=== PATIENT | male | born 1985 | race Hispanic/Latino ===

== ENCOUNTER 2016-10-19 13:39 | Emergency (ER) | payer MEDICAID ==
[2016-10-19 14:18] VITALS: RESP 20
--- NOTE | 2016-10-19 14:47 | ED PDOC ---
Arrival/HPI - General Chief Complaint: ENT Problem Time Seen by Provider: 10/19/16 14:35 Historian: Patient - History of Present Illness Narrative History of Present Illness (Text): 10/19/16 15:50 Patient reports 2 month history of intermittent right ear pain. Reports (-) recent URI symptoms, (-) drainiage (-) change in hearing. Otherwise: (-) fever , (-) headache. 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 absent: Fatigue, Weight Change, Fevers ENT: Normal, Other (chronic intermittent R ear pain x 2 months). absent: Hearing Changes, Tinnitus, TMJ Pain, Sore Throat, Rhinorrhea, Epistaxis Respiratory: Normal. absent: SOB, Cough, Sputum Musculoskeletal: Normal. absent: Arthralgias, Back Pain, Neck Pain Skin: Normal. absent: Rash, Pruritis, Skin Lesions Physical Exam - Physical Exam Narrative Physical Exam (Text): 10/19/16 15:49 GENERAL APPEARANCE: Patient is awake, alert, oriented x 3, in no acute distress. SKIN: Warm, dry; (-) cyanosis. ENMT: Canals : (-) cerumen impaction, TMs: (-) TM bulging and (-) erythema, (-) effusion, (-) perforation,(-) vesicles, other ear normal. Frontal / maxillary sinuses : (-) tenderness. (-) TMJ tenderness. Pharynx: Clear; (-) erythema, (- ) exudate. Airway patent: (-) stridor. NECK: (-) stiffness, (-) tenderness, (-) lymphadenopathy. LUNGS: clear, (-) wheezing, (-) rhonchi. CARDIAC: RRR, (-) murmurs, (-) gallops. Vital Signs Temp Pulse Resp BP Pulse Ox 10/19/16 14:49 98.1 F 72 20 132/72 100 10/19/16 14:15 98.1 F 80 20 123/75 97 Medical Decision Making ED Course and Treatment: 10/19/16 14:45 30 yo M c/o intermittent R ear pain x 2 months. Physical exam shows no evidence of infection or cerumen impaction. Based on history and exam, plan will be for outpatient follow-up with the ENT referral provided. Patient states he fully agrees with and understands discharge instructions. States that he agrees with the plan and disposition. Verbalized and repeated discharge instructions and plan. I have given the patient opportunity to ask any additional questions. Follow up with ENT referral provided n 1-2 days without fail. Return to the emergency room at any time for any new or worsening symptoms. - PA / [facility] / Resident Statement MD/DO has reviewed & agrees with the documentation as recorded. Disposition/Present on Arrival - Present on Arrival Any Indicators Present on Arrival: No History of DVT/PE: No History of Uncontrolled Diabetes: No Urinary Catheter: No History of Decub. Ulcer: No History Surgical Site Infection Following: None - Disposition Have Diagnosis and Disposition been Completed?: Yes Diagnosis: Otalgia of right ear Disposition: HOME/ ROUTINE Disposition Time: 14:45 Patient Plan: Discharge Condition: GOOD Discharge Instructions (ExitCare): Earache (ED) Print Language: BURKIN[place] Additional Instructions: Thank you for letting us take care of you today. You were treated for otalgia. The emergency medical care you received today was directed at your acute symptoms. Return to the Emergency Department if your symptoms worsen, do not improve, or if you have any other problems. Please contact your doctor in 2 days for re-evaluation and follow up / or call one of the physicians/clinics you have been referred to that are listed on the Patient Visit Information form that is included in your discharge packet. Bring any paperwork you were given at discharge with you along with any medications you are taking to your follow up visit. Our treatment cannot replace ongoing medical care by a primary care provider (PCP) outside of the emergency department. Thank you for allowing the [facility] team to be part of your care today. Referrals: PCP,NO [Primary Care Provider] - Follow up with primary Homer Kelly DO [[facility]] - Follow up with primary [facility] [Outside] - Follow up with primary [facility] [Outside] - Follow up with primary
[2016-10-19 14:53] VITALS: BP 132/72; PULSE 75; TEMP 98.6; O2SAT 100
== END 2016-10-19 14:54 | disposition home or self-care (01) ==
LOC: ED 13:39
DX: H92.01 Otalgia, right ear (principal)